=== PATIENT | female | born 1995 | race Caucasian/White ===

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

== ENCOUNTER 2018-04-04 23:36 | Emergency (ER) | payer BC ==
[2018-04-04] MEDS ORDERED: Ondansetron 4 MG/2 ML SDV IV ONE (23:39)
[2018-04-05 00:20] VITALS: BP 136/82
[2018-04-05 00:22] LABS: ANION GAP 21.5; CHLORIDE,CL 98 mmol/L (101-111); SODIUM,NA 135 mmol/L (135-145)
[2018-04-05] MEDS ORDERED: Sodium Chloride 0.9% 1,000 ML IV ONE (00:47)
--- NOTE | 2018-04-05 00:56 | EDM.PDOC ---
ED HPI GENERAL MEDICAL PROBLEM - General Chief Complaint: Behavioral/Psych Stated Complaint: IN BY AMBULANCE Time Seen by Provider: 04/05/18 00:40 Source of Information: Reports: Patient History Limitations: Reports: Intoxication - History of Present Illness INITIAL COMMENTS - FREE TEXT/NARRATIVE: This 22 yo female patient was brought to the ED by [facility] due to drinking alcohol and vomiting. The patient had drank 750 ml of Tequila this evening on a dare. The patient reports that her insulin pump "" and she does not have her sensor on at this time. The patient reports that she did not stop her medications or insulin pump with an intention to harm herself. Onset: Today Duration: Constant Location: Reports: Other Quality: Reports: Other Severity: Moderate Improves with: Reports: None Worsens with: Reports: None Associated Symptoms: Reports: No Other Symptoms - Related Data Allergies Allergy/AdvReac Type Severity Reaction Status Date / Time levofloxacin [From Levaquin] Allergy Swollen Verified 04/05/18 00:17 Tongue Home Meds: Home Meds Amylase/Lipase/Protease [Creon DR 24,000 Unit] 150 mg PO DAILY 07/23/15 [History ] Dornase Michael [Pulmozyme] 2.5 mg NEB DAILY 07/23/15 [History] Ergocalciferol (Vitamin D2) [Vitamin D2] 50,000 units PO Q7D 07/23/15 [History] Ivacaftor [Kalydeco] 150 mg PO DAILY 07/23/15 [History] Lansoprazole [Prevacid] 15 mg PO DAILY 07/23/15 [History] Past Medical History Respiratory History: Reports: Cystic Fibrosis Endocrine/Metabolic History: Reports: Diabetes, Type I - Past Surgical History GI Surgical History: Reports: Other (See Below) Social & Family History - Tobacco Use Smoking Status *Q: Never Smoker Second Hand Smoke Exposure: No - Caffeine Use Caffeine Use: Reports: Coffee - Alcohol Use Date of Last Drink: 04/04/18 - Recreational Drug Use Recreational Drug Use: No ED ROS GENERAL - Review of Systems Review Of Systems: ROS reveals no pertinent complaints other than HPI. - Physical Exam Exam: See Below Exam Limited By: Intoxication General Appearance: Alert, WD/WN, Moderate Distress Eye Exam: Bilateral Eye: EOMI, Normal Inspection, PERRL Ears: Normal External Exam, Normal Canal, Hearing Grossly Normal, Normal TMs Nose: Normal Inspection, Normal Mucosa, No Blood Throat/Mouth: Normal Inspection, Normal Lips, Normal Teeth, Normal Gums, Normal Oropharynx, Normal Voice, No Airway Compromise Head Exam: Atraumatic, Normocephalic Neck: Normal Inspection, Supple, Non-Tender, Full Range of Motion Respiratory/Chest: No Respiratory Distress, Lungs Clear, Normal Breath Sounds, No Accessory Muscle Use, Chest Non-Tender Cardiovascular: Normal Peripheral Pulses, Regular Rate, Rhythm, No Edema, No Gallop, No JVD, No Murmur, No Rub GI/Abdominal: Normal Bowel Sounds, Soft, Non-Tender, No Organomegaly, No Distention, No Abnormal Bruit, No Mass (Female) Exam: Deferred Rectal (Female) Exam: Deferred Neuro Exam (Abbreviated): Alert, Oriented, CN II-XII Intact Back Exam: Normal Inspection, Full Range of Motion, NT Extremities: Normal Inspection, Normal Range of Motion, Non-Tender, No Pedal Edema, Normal Capillary Refill Psychiatric: Normal Affect, Normal Mood Skin Exam: Warm, Dry, Intact, Normal Color, No Rash Course - Vital Signs Last Recorded V/S: Last Vital Signs Temp 36.4 C 04/04/18 23:53 Pulse 111 H 04/05/18 00:19 Resp 20 04/05/18 00:19 BP 136/82 04/05/18 00:19 Pulse Ox 100 04/05/18 00:19 - Orders/Labs/Meds Orders: Active Orders 24 hr Category Date Time Status Glucose [Blood Glucose Check, Bedside] [RC] ONETIME Care 04/05/18 01:54 Ordered Ankle Min 3V Lt [CR] Urgent Exams 04/05/18 00:59 Taken DRUG SCREEN URINE BIORAD [URCHEM] Stat Lab 04/04/18 23:37 Ordered HCG QUALITATIVE,URINE [URCHEM] Stat Lab 04/04/18 23:37 Ordered UA W/MICROSCOPIC [URIN] Stat Lab 04/04/18 23:37 Ordered DME for Discharge [COMM] Urgent Oth 04/05/18 01:47 Ordered Labs: Laboratory Tests 04/04/18 04/04/18 04/04/18 Range/Units 23:53 23:53 23:53 WBC 14.0 H (5.0-10.0) 10^3/uL RBC 4.79 (4.2-5.4) 10^6/uL Hgb 13.0 D (12.0-16.0) g/dL Hct 38.4 (37.0-47.0) % MCV 80.2 D (80-100) fL MCH 27.1 (27.0-34.0) pg MCHC 33.9 (33.0-35.0) g/dL Plt Count 564 H D (150-450) 10^3/uL Neut % (Auto) 70.4 (42.2-75.2) % Lymph % (Auto) 23.1 (20.5-50.1) % [place] % (Auto) 5.7 (2-8) % Eos % (Auto) 0.5 L (1.0-3.0) % Baso % (Auto) 0.3 (0.0-1.0) % Sodium 135 D (135-145) mmol/L Potassium 3.5 L (3.6-5.0) mmol/L Chloride 98 L (101-111) mmol/L Carbon Dioxide 19.0 L (21.0-31.0) mmol/L Anion Gap 21.5 BUN 13 (7-18) mg/dL Creatinine 0.8 (0.6-1.3) mg/dL Est Cr Clr Drug Dosing 100.94 mL/min Estimated GFR (MDRD) > 60 BUN/Creatinine Ratio 16.25 Glucose 442 H* (74-105) mg/dL POC Glucose (70-105) mg/dl Calcium 8.3 L (8.4-10.2) mg/dl Total Bilirubin 0.2 (0.2-1.0) mg/dL AST 25 (10-42) IU/L ALT 32 (10-60) IU/L Alkaline Phosphatase 121 (42-121) IU/L Total Protein 8.1 (6.7-8.2) g/dl Albumin 3.6 (3.2-5.5) g/dl Globulin 4.5 Albumin/Globulin Ratio 0.80 Ethyl Alcohol 292 mg/dL Ketones 04/04/18 04/05/18 Range/Units 23:53 02:03 WBC (5.0-10.0) 10^3/uL RBC (4.2-5.4) 10^6/uL Hgb (12.0-16.0) g/dL Hct (37.0-47.0) % MCV (80-100) fL MCH (27.0-34.0) pg MCHC (33.0-35.0) g/dL Plt Count (150-450) 10^3/uL Neut % (Auto) (42.2-75.2) % Lymph % (Auto) (20.5-50.1) % [place] % (Auto) (2-8) % Eos % (Auto) (1.0-3.0) % Baso % (Auto) (0.0-1.0) % Sodium (135-145) mmol/L Potassium (3.6-5.0) mmol/L Chloride (101-111) mmol/L Carbon Dioxide (21.0-31.0) mmol/L Anion Gap BUN (7-18) mg/dL Creatinine (0.6-1.3) mg/dL Est Cr Clr Drug Dosing mL/min Estimated GFR (MDRD) BUN/Creatinine Ratio Glucose (74-105) mg/dL POC Glucose 291 H (70-105) mg/dl Calcium (8.4-10.2) mg/dl Total Bilirubin (0.2-1.0) mg/dL AST (10-42) IU/L ALT (10-60) IU/L Alkaline Phosphatase (42-121) IU/L Total Protein (6.7-8.2) g/dl Albumin (3.2-5.5) g/dl Globulin Albumin/Globulin Ratio Ethyl Alcohol mg/dL Ketones Negative Meds: Medications Discontinued Medications Generic Name Dose Route Start Last Admin Trade Name Freq PRN Reason Stop Dose Admin Sodium Chloride 1,000 mls @ 999 mls/hr 04/05/18 00:47 04/05/18 00:54 Normal Saline IV 04/05/18 01:47 999 mls/hr .BOLUS ONE Administration Ondansetron HCl 4 mg 04/04/18 23:39 04/04/18 23:50 Zofran IV 04/04/18 23:40 4 mg ONETIME ONE Administration Departure - Departure Time of Disposition: :08 Disposition: Home, Self-Care 01 Condition: Fair Clinical Impression: ETOH abuse Closed left fibular fracture Qualifiers: Encounter type: initial encounter Fibula location: lateral malleolus Fracture alignment: nondisplaced Qualified Code(s): S82.65XA - Nondisplaced fracture of lateral malleolus of left fibula, initial encounter for closed fracture - Discharge Information *PRESCRIPTION DRUG MONITORING PROGRAM REVIEWED*: Not Applicable *COPY OF PRESCRIPTION DRUG MONITORING REPORT IN PATIENT KAMILAH: Not Applicable Instructions: Fibular Ankle Fracture Treated With or Without Immobilization, Adult Forms: ED Department Discharge Care Plan Goals: The patient was advised of the examination, lab and x-ray results during the visit. The patient's left ankle was placed in a walking boot and given a set of crutches during the visit. The patient was encouraged to remain non weight bearing over the next week. The patient should have a follow-up with her primary care provider for continued evaluation and management. If the patient has any additional symptoms or concerns, the patient should follow-up with her primary care facility or return to the emergency department. - My Orders Last 24 Hours: My Active Orders 04/04/18 23:37 DRUG SCREEN URINE BIORAD [URCHEM] Stat HCG QUALITATIVE,URINE [URCHEM] Stat UA W/MICROSCOPIC [URIN] Stat 04/05/18 00:59 Ankle Min 3V Lt [CR] Urgent 04/05/18 01:47 DME for Discharge [COMM] Urgent 04/05/18 01:54 Glucose [Blood Glucose Check, Bedside] [RC] ONETIME - Assessment/Plan Last 24 Hours: My Active Orders 04/04/18 23:37 DRUG SCREEN URINE BIORAD [URCHEM] Stat HCG QUALITATIVE,URINE [URCHEM] Stat UA W/MICROSCOPIC [URIN] Stat 04/05/18 00:59 Ankle Min 3V Lt [CR] Urgent 04/05/18 01:47 DME for Discharge [COMM] Urgent 04/05/18 01:54 Glucose [Blood Glucose Check, Bedside] [RC] ONETIME
== END 2018-04-05 02:21 | disposition home or self-care (01) ==
LOC: DL.ED 23:36
DX: S82.65XA Nondisplaced fracture of lateral malleolus of left fibula, initial encounter for closed fracture (principal); F10.10 Alcohol abuse, uncomplicated; E10.9 Type 1 diabetes mellitus without complications; Z79.899 Other long term (current) drug therapy; Z88.1 Allergy status to other antibiotic agents; Y90.8 Blood alcohol level of 240 mg/100 ml or more; X58.XXXA Exposure to other specified factors, initial encounter
CPT/HCPCS: 36415; 73610; 80053; 82009; 82962; 85025; 96361; 96374; 99285; G0480; J2405; J7030

== ENCOUNTER 2018-05-04 03:22 | Emergency (ER) | payer BC ==
[2018-05-04 03:33] VITALS: BP 141/98
--- NOTE | 2018-05-04 03:43 | EDM.PDOC ---
ED HPI GENERAL MEDICAL PROBLEM - General Chief Complaint: Respiratory Problem Stated Complaint: DIFFICULTY BREATHING [id number] Time Seen by Provider: 05/04/18 03:38 Source of Information: Reports: Patient, Family History Limitations: Reports: No Limitations - History of Present Illness INITIAL COMMENTS - FREE TEXT/NARRATIVE: family states pt has CF and being Tx in [place] has appt with them this am been having a cold few weeks is taking z-iraida but tonight SOB worsen with SOB/CP. does nebs at home had one [employer] but not working well. family states pt has h/o anxiety Mid-Sternal Pain Score (Numeric/FACES): 8 - Related Data Allergies Allergy/AdvReac Type Severity Reaction Status Date / Time levofloxacin [From Levaquin] Allergy Swollen Verified 05/04/18 03:33 Tongue Home Meds: Home Meds Amylase/Lipase/Protease [Creon DR 24,000 Unit] 150 mg PO DAILY 07/23/15 [History ] Dornase Michael [Pulmozyme] 2.5 mg NEB DAILY 07/23/15 [History] Ergocalciferol (Vitamin D2) [Vitamin D2] 50,000 units PO Q7D 07/23/15 [History] Ivacaftor [Kalydeco] 150 mg PO DAILY 07/23/15 [History] Lansoprazole [Prevacid] 15 mg PO DAILY 07/23/15 [History] Past Medical History Respiratory History: Reports: Cystic Fibrosis Endocrine/Metabolic History: Reports: Diabetes, Type I - Past Surgical History GI Surgical History: Reports: Other (See Below) Social & Family History - Caffeine Use Caffeine Use: Reports: Coffee ED ROS GENERAL - Review of Systems Review Of Systems: ROS reveals no pertinent complaints other than HPI. ED EXAM, GENERAL - Physical Exam Exam: See Below Exam Limited By: No Limitations General Appearance: Alert, WD/WN, Anxious, Mild Distress, Moderate Distress, Other (tachypnoic, diaphoretic) Ears: Hearing Grossly Normal Throat/Mouth: Normal Voice, No Airway Compromise Head: Atraumatic Neck: Non-Tender, Full Range of Motion Respiratory/Chest: Decreased Breath Sounds, Crackles, Rales, Rhonchi, Accessory Muscle Use, Other (tachypneic) Cardiovascular: Tachycardia GI/Abdominal: Soft, Non-Tender Neurological: Alert, Oriented, Normal Cognition, Normal Gait, No Motor/Sensory Deficits Psychiatric: Anxious Skin Exam: Diaphoretic, Pallor Lymphatic: No Adenopathy Course - Vital Signs Last Recorded V/S: Last Vital Signs Temp 36.6 C 05/04/18 03:25 Pulse 151 H 05/04/18 03:25 Resp 38 H 05/04/18 03:25 BP 141/98 H 05/04/18 03:25 Pulse Ox 97 05/04/18 03:33 - Orders/Labs/Meds Orders: Active Orders 24 hr Category Date Time Status EKG 12 Lead [EKG Documentation Completion] [RC] STAT Care 05/04/18 03:34 Active RT Aerosol Therapy [RC] ASDIRECTED Care 05/04/18 03:44 Active Chest 1V Frontal [CR] Urgent Exams 05/04/18 04:00 Taken CULTURE BLOOD [BC] Stat Lab 05/04/18 04:44 Ordered DRUG SCREEN URINE BIORAD [URCHEM] Stat Lab 05/04/18 03:24 Ordered HCG QUALITATIVE,URINE [URCHEM] Stat Lab 05/04/18 03:24 Ordered UA W/O MICROSCOPIC [URIN] Stat Lab 05/04/18 03:24 Ordered Azithromycin [Zithromax] 500 mg Med 05/04/18 05:20 Ordered Sodium Chloride 0.9% [Normal Saline] 250 ml IV ONETIME Piperacillin/Tazobactam [Zosyn] 3.375 gm Med 05/04/18 05:20 Ordered Sodium Chloride 0.9% [Normal Saline] 100 ml IV ONETIME Sodium Chloride 0.9% [Normal Saline] 1,000 ml Med 05/04/18 05:30 Ordered IV ASDIRECTED Medication Orders Azithromycin 500 mg/ Sodium (Chloride) 250 mls @ 250 mls/hr IV ONETIME ONE Stop: 05/04/18 06:19 Piperacillin Sod/Tazobactam (Sod 3.375 gm/ Sodium Chloride) 100 mls @ 200 mls/ hr IV ONETIME ONE Stop: 05/04/18 05:49 Sodium Chloride (Normal Saline) 1,000 mls @ 200 mls/hr IV ASDIRECTED [facility] Labs: Laboratory Tests 05/04/18 05/04/18 05/04/18 Range/Units 03:30 03:30 03:30 WBC 13.1 H (5.0-10.0) 10^3/uL RBC 4.65 (4.2-5.4) 10^6/uL Hgb 12.3 (12.0-16.0) g/dL Hct 36.5 L (37.0-47.0) % MCV 78.5 L (80-100) fL MCH 26.5 L (27.0-34.0) pg MCHC 33.7 (33.0-35.0) g/dL Plt Count 655 H D (150-450) 10^3/uL Neut % (Auto) 68.2 (42.2-75.2) % Lymph % (Auto) 21.9 (20.5-50.1) % [place] % (Auto) 8.9 H (2-8) % Eos % (Auto) 0.8 L (1.0-3.0) % Baso % (Auto) 0.2 (0.0-1.0) % Add Manual Diff Yes Neutrophils % (Manual) 63 (42-75) % Lymphocytes % (Manual) 31 (20-50) % Monocytes % (Manual) 4 (2-8) % Eosinophils % (Manual) 2 (1-3) % ABG pH (7.35-7.45) ABG pCO2 (35-45) mmHg ABG pO2 (70-100) mmHg ABG HCO3 (22-26) mmol/L ABG O2 Saturation (95-100) % ABG Base Excess ((-2)-(+3)) mmol/L Justo Test O2 Delivery Device Oxygen Flow Rate Sodium 128 L (135-145) mmol/L Potassium 3.7 (3.6-5.0) mmol/L Chloride 92 L (101-111) mmol/L Carbon Dioxide 26.0 (21.0-31.0) mmol/L Anion Gap 13.7 BUN 12 (7-18) mg/dL Creatinine 0.7 (0.6-1.3) mg/dL Est Cr Clr Drug Dosing 110.70 mL/min Estimated GFR (MDRD) > 60 BUN/Creatinine Ratio 17.14 Glucose 374 H (74-105) mg/dL Lactic Acid 1.2 (0.5-2.2) mmol/L Calcium 8.5 (8.4-10.2) mg/dl Total Bilirubin 0.2 (0.2-1.0) mg/dL AST 15 (10-42) IU/L ALT 14 (10-60) IU/L Alkaline Phosphatase 126 H (42-121) IU/L Troponin I (0.00-0.02) ng/ml B-Natriuretic Peptide (0-100) pg/ml Total Protein 8.1 (6.7-8.2) g/dl Albumin 3.0 L (3.2-5.5) g/dl Globulin 5.1 Albumin/Globulin Ratio 0.59 Ethyl Alcohol < 5 mg/dL 05/04/18 05/04/18 05/04/18 Range/Units 03:30 03:30 03:53 WBC (5.0-10.0) 10^3/uL RBC (4.2-5.4) 10^6/uL Hgb (12.0-16.0) g/dL Hct (37.0-47.0) % MCV (80-100) fL MCH (27.0-34.0) pg MCHC (33.0-35.0) g/dL Plt Count (150-450) 10^3/uL Neut % (Auto) (42.2-75.2) % Lymph % (Auto) (20.5-50.1) % [place] % (Auto) (2-8) % Eos % (Auto) (1.0-3.0) % Baso % (Auto) (0.0-1.0) % Add Manual Diff Neutrophils % (Manual) (42-75) % Lymphocytes % (Manual) (20-50) % Monocytes % (Manual) (2-8) % Eosinophils % (Manual) (1-3) % ABG pH 7.46 H (7.35-7.45) ABG pCO2 37 (35-45) mmHg ABG pO2 81 (70-100) mmHg ABG HCO3 25.5 (22-26) mmol/L ABG O2 Saturation 96 (95-100) % ABG Base Excess 2 ((-2)-(+3)) mmol/L Justo Test Positive O2 Delivery Device Nasal cannula Oxygen Flow Rate 3 Sodium (135-145) mmol/L Potassium (3.6-5.0) mmol/L Chloride (101-111) mmol/L Carbon Dioxide (21.0-31.0) mmol/L Anion Gap BUN (7-18) mg/dL Creatinine (0.6-1.3) mg/dL Est Cr Clr Drug Dosing mL/min Estimated GFR (MDRD) BUN/Creatinine Ratio Glucose (74-105) mg/dL Lactic Acid (0.5-2.2) mmol/L Calcium (8.4-10.2) mg/dl Total Bilirubin (0.2-1.0) mg/dL AST (10-42) IU/L ALT (10-60) IU/L Alkaline Phosphatase (42-121) IU/L Troponin I < 0.02 (0.00-0.02) ng/ml B-Natriuretic Peptide 13 (0-100) pg/ml Total Protein (6.7-8.2) g/dl Albumin (3.2-5.5) g/dl Globulin Albumin/Globulin Ratio Ethyl Alcohol mg/dL Meds: Medications Generic Name Dose Route Start Last Admin Trade Name Freq PRN Reason Stop Dose Admin Azithromycin 500 mg/ Sodium 250 mls @ 250 mls/hr 05/04/18 05:20 Chloride IV 05/04/18 06:19 ONETIME ONE Piperacillin Sod/Tazobactam 100 mls @ 200 mls/hr 05/04/18 05:20 Sod 3.375 gm/ Sodium Chloride IV 05/04/18 05:49 ONETIME ONE Sodium Chloride 1,000 mls @ 200 mls/hr 05/04/18 05:30 Normal Saline IV ASDIRECTED CARLOS Discontinued Medications Generic Name Dose Route Start Last Admin Trade Name Freq PRN Reason Stop Dose Admin Albuterol/Ipratropium 3 ml 05/04/18 03:44 05/04/18 03:52 Duoneb 3.0-0.5 Mg/3 Ml NEB 05/04/18 03:45 3 ml ONETIME ONE Administration Lorazepam 1 mg 05/04/18 03:44 05/04/18 03:52 Ativan IVPUSH 05/04/18 03:45 1 mg ONETIME ONE Administration Methylprednisolone Sodium Succinate 125 mg 05/04/18 03:44 05/04/18 03:52 Solu-Medrol IVPUSH 05/04/18 03:45 125 mg ONETIME ONE Administration - Re-Assessments/Exams Free Text/Narrative Re-Assessment/Exam: 05/04/18 05:[address] Ennis church supervisor @ [facility] who kindly acepted pt. Departure - Departure Time of Disposition: 05:24 Disposition: DC/Tfer to [facility] 02 Condition: Fair Clinical Impression: Pulmonary cystic fibrosis, Hypoxemia, Hyponatremia Pneumonia Qualifiers: Pneumonia type: due to unspecified organism Laterality: bilateral Lung location : lower lobe of lung Qualified Code(s): J18.1 - Lobar pneumonia, unspecified organism - Discharge Information Forms: Interfacility Transfer EMTALA - My Orders Last 24 Hours: My Active Orders 05/04/18 03:24 DRUG SCREEN URINE BIORAD [URCHEM] Stat HCG QUALITATIVE,URINE [URCHEM] Stat UA W/O MICROSCOPIC [URIN] Stat 05/04/18 03:34 EKG 12 Lead [EKG Documentation Completion] [RC] STAT 05/04/18 03:44 RT Aerosol Therapy [RC] ASDIRECTED 05/04/18 04:00 Chest 1V Frontal [CR] Urgent 05/04/18 04:44 CULTURE BLOOD [BC] Stat 05/04/18 05:20 Azithromycin [Zithromax] 500 mg Sodium Chloride 0.9% [Normal Saline] 250 ml IV ONETIME Piperacillin/Tazobactam [Zosyn] 3.375 gm Sodium Chloride 0.9% [Normal Saline] 100 ml IV ONETIME 05/04/18 05:30 Sodium Chloride 0.9% [Normal Saline] 1,000 ml IV ASDIRECTED - Assessment/Plan Last 24 Hours: My Active Orders 05/04/18 03:24 DRUG SCREEN URINE BIORAD [URCHEM] Stat HCG QUALITATIVE,URINE [URCHEM] Stat UA W/O MICROSCOPIC [URIN] Stat 05/04/18 03:34 EKG 12 Lead [EKG Documentation Completion] [RC] STAT 05/04/18 03:44 RT Aerosol Therapy [RC] ASDIRECTED 05/04/18 04:00 Chest 1V Frontal [CR] Urgent 05/04/18 04:44 CULTURE BLOOD [BC] Stat 05/04/18 05:20 Azithromycin [Zithromax] 500 mg Sodium Chloride 0.9% [Normal Saline] 250 ml IV ONETIME Piperacillin/Tazobactam [Zosyn] 3.375 gm Sodium Chloride 0.9% [Normal Saline] 100 ml IV ONETIME 05/04/18 05:30 Sodium Chloride 0.9% [Normal Saline] 1,000 ml IV ASDIRECTED
[2018-05-04] MEDS ORDERED: LORazepam 2 MG/ML Syringe IVPUSH ONE (03:44)
[2018-05-04] MEDS ORDERED: Albuterol/Ipratropium 3.0-0.5 MG/3 ML Neb Soln NEB ONE (03:44)
[2018-05-04] MEDS ORDERED: methylPREDNISolone Sodium Succinate 125 MG/2 ML SDV IVPUSH ONE (03:44)
[2018-05-04 03:57] LABS: ANION GAP 13.7; CHLORIDE,CL 92 mmol/L (101-111); SODIUM,NA 128 mmol/L (135-145)
[2018-05-04 04:25] LABS: BASE EXCESS ARTERIAL 2 mmol/L ((-2)-(+3)); BICARBONATE,ARTERIAL 25.5 mmol/L (22-26); O2 DELIVERY DEVICE NASAL CANNULA; O2 SATURATION ARTERIAL 96 % (95-100); PCO2 ARTERIAL 37 mmHg (35-45); PO2 ARTERIAL 81 mmHg (70-100)
[2018-05-04 04:26] LABS: ALLEN TEST POSITIVE
[2018-05-04 04:27] LABS: O2 FLOW RATE 3
[2018-05-04] MEDS ORDERED: Azithromycin 500 MG in Sodium Chloride 0.9% 250 ML IV ONE (05:20)
[2018-05-04] MEDS ORDERED: Piperacillin/Tazobactam 3.375 GM in Sodium Chloride 0.9% 100 ML IV ONE (05:20)
[2018-05-04] MEDS ORDERED: Sodium Chloride 0.9% 1,000 ML IV SCH (05:30)
== END 2018-05-04 06:40 ==
LOC: DL.ED 03:22
DX: J18.9 Pneumonia, unspecified organism (principal); J84.10 Pulmonary fibrosis, unspecified; E87.1 Hypo-osmolality and hyponatremia; R09.02 Hypoxemia; E10.9 Type 1 diabetes mellitus without complications; Z79.899 Other long term (current) drug therapy; Z88.1 Allergy status to other antibiotic agents
CPT/HCPCS: 36415; 36600; 71045; 80053; 82803; 83605; 83880; 84484; 85025; 87040; 93005; 94640; 96365; 96367; 96375; 99285; G0480; J0456; J2060; J2543; J2930; J7050; J7620-GY

== ENCOUNTER 2018-11-04 22:19 | Emergency (ER) | payer BC ==
[2018-11-04] MEDS ORDERED: Acetaminophen/HYDROcodone 325-10 MG Tab PO ONE (22:20)
[2018-11-04 22:36] VITALS: BP 137/93
[2018-11-04] MEDS ORDERED: cefTRIAXone 1 GM, Lidocaine 1% 2.1 ML IM ONE ×2 (23:35)
[2018-11-04] MEDS ORDERED: Acetaminophen/HYDROcodone 325-10 MG Tab ONE (23:43)
--- NOTE | 2018-11-04 23:46 | EDM.PDOC ---
ED HPI GENERAL MEDICAL PROBLEM - General Chief Complaint: ENT Problem Stated Complaint: PAIN IN LEFT EAR- EAR INFECTION Time Seen by Provider: 11/04/18 23:00 Source of Information: Reports: Patient, Family History Limitations: Reports: No Limitations - History of Present Illness INITIAL COMMENTS - FREE TEXT/NARRATIVE: c/o pain left ear, worse tonight, unrelieved with tylenol and ibuprofen. Has been seen in clinic yesterday, prescribed cipro drops, for infection. Has been on augmenting for one week for sinus infection. Sinus sx improved. Pain left ear sharp radiating. No fever. Hx of cystic fibrosis. Treatments MANAGER OF INTERNAL AUDIT: Reports: NSAIDS Left Ear Pain Score (Numeric/FACES): 9 - Related Data Allergies Allergy/AdvReac Type Severity Reaction Status Date / Time levofloxacin [From Levaquin] Allergy Swollen Verified 11/04/18 22:39 Tongue Home Meds: Home Meds Amylase/Lipase/Protease [Creon DR 24,000 Unit] 150 mg PO DAILY 07/23/15 [History ] Dornase Michael [Pulmozyme] 2.5 mg NEB DAILY 07/23/15 [History] Ergocalciferol (Vitamin D2) [Vitamin D2] 50,000 units PO Q7D 07/23/15 [History] Ivacaftor [Kalydeco] 150 mg PO DAILY 07/23/15 [History] Lansoprazole [Prevacid] 15 mg PO DAILY 07/23/15 [History] Insulin Aspart [NovoLOG] 1.4 units SQ ASDIRECTED 11/04/18 [History] Past Medical History Respiratory History: Reports: Cystic Fibrosis Endocrine/Metabolic History: Reports: Diabetes, Type I - Past Surgical History GI Surgical History: Reports: Other (See Below) Other GI Surgeries/Procedures: Feediang tube and removal Social & Family History - Family History Family Medical History: Noncontributory - Tobacco Use Smoking Status *Q: Never Smoker Second Hand Smoke Exposure: No - Caffeine Use Caffeine Use: Reports: Coffee, Soda - Recreational Drug Use Recreational Drug Use: No ED ROS ENT - Review of Systems Review Of Systems: ROS reveals no pertinent complaints other than HPI. ED EXAM, ENT - Physical Exam Exam: See Below Exam Limited By: No Limitations General Appearance: Alert, Mild Distress Eye Exam: Bilateral Eye: EOMI Ears: Normal External Exam, Mastoid Tenderness (mild), TM Fluid (cloudy ) Nose: Normal Inspection, Normal Mucousa Mouth/Throat: Normal Inspection Head: Atraumatic, Normocephalic Neck: Normal Inspection Respiratory/Chest: No Respiratory Distress, Lungs Clear GI/Abdominal: Normal Bowel Sounds Extremities: Normal Inspection Neurological: Alert, Oriented Skin: Warm, Dry, Pallor Course - Vital Signs Last Recorded V/S: Last Vital Signs Temp 96.8 F 11/04/18 22:20 Pulse 107 H 11/04/18 22:20 Resp 14 11/04/18 22:20 BP 137/93 H 11/04/18 22:20 Pulse Ox 95 11/04/18 22:20 Departure - Departure Time of Disposition: 23:36 Disposition: Home, Self-Care 01 Condition: Good Clinical Impression: Otitis media Qualifiers: Otitis media type: suppurative Chronicity: acute Laterality: left Recurrence: non-recurrent Spontaneous tympanic membrane rupture: without spontaneous rupture Qualified Code(s): H66.002 - Acute suppurative otitis media without spontaneous rupture of ear drum, left ear - Discharge Information *PRESCRIPTION DRUG MONITORING PROGRAM REVIEWED*: Not Applicable *COPY OF PRESCRIPTION DRUG MONITORING REPORT IN PATIENT KAMILAH: Not Applicable Instructions: Mastoiditis, Pediatric Additional Instructions: continue with cipro ear drops omnicef 300mg one twice daily x 10 days alternate tylenol and ibuprofen every 4 hours as needed hydrocodone 10/325 one every 6 hours as needed #2 clinic follow up Friday sooner if symptoms or pain worsening
== END 2018-11-04 23:57 | disposition home or self-care (01) ==
LOC: DL.ED 22:19
DX: H66.002 Acute suppurative otitis media without spontaneous rupture of ear drum, left ear (principal); E10.9 Type 1 diabetes mellitus without complications; Z79.899 Other long term (current) drug therapy; Z88.1 Allergy status to other antibiotic agents
CPT/HCPCS: 96372; 99282; A9270; J0696; J2001

== ENCOUNTER 2019-03-29 20:32 | Emergency (ER) | payer BC ==
[2019-03-29 20:38] VITALS: BP 149/99
--- NOTE | 2019-03-29 22:10 | EDM.PDOC ---
ED HPI GENERAL MEDICAL PROBLEM - General Chief Complaint: Lower Extremity Injury/Pain Stated Complaint: POSSIBLE BROKEN FOOT Time Seen by Provider: 03/29/19 20:35 Source of Information: Reports: Patient History Limitations: Reports: No Limitations - History of Present Illness INITIAL COMMENTS - FREE TEXT/NARRATIVE: C/o bruising and pain to left ankle. Fell walking off curb on Friday. Prior left ankle fracture one year ago. Ambulatory with walking boot. Admits ETOH Friday shima. Tried clinic today unable to get in. Treatments OB TECH: Reports: NSAIDS Left Foot Pain Score (Numeric/FACES): 3 - Related Data Allergies Allergy/AdvReac Type Severity Reaction Status Date / Time levofloxacin [From Levaquin] Allergy Swollen Verified 03/29/19 20:43 Tongue Home Meds: Home Meds Amylase/Lipase/Protease [Aretha MOTTA 24,000 Unit] 6 cap PO TIDMEALS 07/23/15 [ History] Ivacaftor [Kalydeco] 150 mg PO DAILY 07/23/15 [History] Lansoprazole [Prevacid] 15 mg PO BID 07/23/15 [History] Insulin Aspart [NovoLOG] 10 units SQ ASDIRECTED 11/04/18 [History] Azithromycin 500 mg PO ASDIRECTED 02/01/19 [History] Aztreonam Lysine [Cayston] 75 mg NEB TID 02/01/19 [History] Cholecalciferol (Vitamin D3) [Vitamin D3] 50,000 units PO DAILY 02/01/19 [ History] Norethindrone AC-Eth Estradiol [Norethind-Eth Estrad 1-0.02 mg] 1 each PO DAILY 02/01/19 [History] Spironolactone [Aldactone] 100 mg PO DAILY 02/01/19 [History] Tobramycin In 0.225% NaCl [Tobramycin 300 mg/5 ml Ampule] 5 ml NEB BID 02/01/19 [History] Venlafaxine HCl [Venlafaxine HCl ER] 75 mg PO DAILY 02/01/19 [History] Venlafaxine HCl [Venlafaxine HCl ER] 150 mg PO DAILY 02/01/19 [History] Acetylcysteine [Mucomyst 10%] 4 ml NEB TID 03/29/19 [History] Albuterol Sulfate [Proair Hfa] 2 puff INH Q4H PRN 03/29/19 [History] Amylase/Lipase/Protease [Creon DR 24,000 Unit] 3 cap PO WITHSNACKS 03/29/19 [ History] Budesonide [Rhinocort Allergy] 8.43 ml NS BID PRN 03/29/19 [History] Cholecalciferol (Vitamin D3) [Vitamin D3] 8,000 unit PO DAILY 03/29/19 [History] Dornase Michael [Pulmozyme] 2.5 mg NEB BID 03/29/19 [History] Ergocalciferol (Vitamin D2) [Vitamin D2] 50,000 units PO DAILY 03/29/19 [History ] Insulin Aspart [NovoLOG] 1.4 units SQ ASDIRECTED 03/29/19 [History] Insulin Glargine,Hum.Rec.Anlog [Lantus Solostar] 35 unit SQ DAILY 03/29/19 [ History] Lactobacillus Rhamnosus GG [Culturelle] 1 cap PO BID 03/29/19 [History] Levalbuterol HCl [Xopenex] 1 ampule NEB Q8H 03/29/19 [History] Multivitamins [Tab-A-Cassandra] 2 each PO DAILY 03/29/19 [History] Polyethylene Glycol 3350 [MiraLAX] 17 gm PO DAILY PRN 03/29/19 [History] Sodium Chloride 7% [HyperSal 7%] 4 ml NEB BID 03/29/19 [History] Tedizolid Phosphate [Sivextro] 200 mg PO DAILY 03/29/19 [History] Past Medical History Respiratory History: Reports: Cystic Fibrosis Endocrine/Metabolic History: Reports: Diabetes, Type I - Past Surgical History GI Surgical History: Reports: Other (See Below) Other GI Surgeries/Procedures: Feeding tube and removal Social & Family History - Family History Family Medical History: Noncontributory - Tobacco Use Smoking Status *Q: Never Smoker - Caffeine Use Caffeine Use: Reports: Coffee, Soda - Recreational Drug Use Recreational Drug Use: No - Living Situation & Occupation Living situation: Reports: with Family Occupation: Employed Review of Systems - Review of Systems Review Of Systems: ROS reveals no pertinent complaints other than HPI. ED EXAM, GENERAL - Physical Exam Exam: See Below Exam Limited By: No Limitations General Appearance: Alert, No Apparent Distress Eye Exam: Bilateral Eye: EOMI Ears: Normal External Exam Nose: Normal Inspection Throat/Mouth: Normal Inspection, Normal Voice Head: Atraumatic, Normocephalic Neck: Normal Inspection Respiratory/Chest: No Respiratory Distress Cardiovascular: Normal Peripheral Pulses Back Exam: Full Range of Motion Extremities: Joint Swelling (left lateral ankle, mild fore foot) Neurological: Alert, Oriented, Normal Cognition Psychiatric: Normal Affect Skin Exam: Warm, Dry, Ecchymosis (proximal toes, lateral nkle and lateral edge fore foot) Course - Vital Signs Last Recorded V/S: Last Vital Signs Temp 98.1 F 03/29/19 20:37 Pulse 120 H 03/29/19 20:37 Resp 20 03/29/19 20:37 BP 149/99 H 03/29/19 20:37 Pulse Ox 96 03/29/19 20:37 - Radiology Interpretation Free Text/Narrative:: [facility] Final Radiology Report Call: [phone] assistance Online chat: [email or web address] Name: APRIL GLASS Age: 23Years F Date: 03/29/2019 SSN: -- : 1995 Study: XR FOOT COMPLETE MIN 3 VIEWS LEFT Requesting Physician: AYDEN LOPEZ Images: 3 Addl Studies: Provided Clinical History: Contrast: Contrast Medium: Contrast Amount: Contrast Method: Page 1 of 2 EXAM: XR Left Foot Complete EXAM DATE/TIME: 03/29/2019 8:48 PM CLINICAL HISTORY: 23 years old, female; Pain; Foot; Left; Patient HX: Fell off curb 03-26-19, HX of fracture (ankle) TECHNIQUE: Imaging protocol: XR Left foot. Views: 3 or more views. COMPARISON: CR Ankle Min 3V Lt 03/29/2019 8:43 PM FINDINGS: There is normal osseous alignment. There are no acute foot fractures. Nondisplaced fracture of lateral malleolus. No callus formation is seen along the metatarsals or elsewhere in the foot. No osteosclerotic abnormalities. No lytic areas of osseous destruction. There are no soft tissue calcifications or radio-opaque foreign bodies. No periarticular osteophyte formation or erosions. IMPRESSION: 1. No acute foot injury. 2. Acute nondisplaced lateral malleolar fracture. Thank you for allowing us to participate in the care of your patient. Dictated and Authenticated by: Justo Dukes MD [facility] Final Radiology Report Call: [phone] assistance Online chat: [email or web address] Name: SHU HAMPTON Age: 50Years M Date: 03/29/2019 SSN: -- : 04/01/1968 Study: XR CHEST 1 VIEW FRONTAL Requesting Physician: AYDEN LOPEZ Images: 1 Addl Studies: Provided Clinical History: Contrast: Contrast Medium: Contrast Amount: Contrast Method: CONFIDENTIALITY STATEMENT This report is intended only for use by the referring physician, and only in accordance with law. If you received this in error, call [phone]. Page 1 of 1 EXAM: XR Chest, 1 View EXAM DATE/TIME: 03/29/2019 10:09 PM CLINICAL HISTORY: 50 years old, male; Chest pain; Type not specified TECHNIQUE: Imaging protocol: XR of the chest, 1 view. COMPARISON: CR Chest 2V 01/12/2019 8:49 AM FINDINGS: Lungs: Nonspecific bibasilar consolidation is present, consistent with atelectasis, edema, or pneumonia. The lungs are hyperinflated, consistent with underlying small airways disease. Pleural space: Unremarkable. No pleural effusion. No pneumothorax. Heart/Mediastinum: Unremarkable. No cardiomegaly. Bones/joints: Unremarkable. IMPRESSION: Nonspecific bibasilar consolidation is present, consistent with atelectasis, edema, or pneumonia. Thank you for allowing us to participate in the care of your patient. Dictated and Authenticated by: Navdeep Ireland DO 03/29/2019 10:35 PM Central Time ([place] & [place]) Departure - Departure Time of Disposition: 22:07 Disposition: Home, Self-Care 01 Condition: Good Clinical Impression: Left malleolar fracture Qualifiers: Encounter type: initial encounter Fracture type: closed Qualified Code(s): S82.892A - Other fracture of left lower leg, initial encounter for closed fracture - Discharge Information *PRESCRIPTION DRUG MONITORING PROGRAM REVIEWED*: No *COPY OF PRESCRIPTION DRUG MONITORING REPORT IN PATIENT KAMILAH: No Instructions: Nondisplaced Fibular Ankle Fracture Treated With Immobilization, Adult Referrals: Radha Vanegas MD [Primary Care Provider] - Forms: ED Department Discharge Care Plan Goals: elevate ice alternate tylenol and ibuprofen for discomfort boot crutches - non weight bearing until seen by ortho follow up with ortho this week
== END 2019-03-29 22:28 | disposition home or self-care (01) ==
LOC: DL.ED 20:32
DX: S82.65XA Nondisplaced fracture of lateral malleolus of left fibula, initial encounter for closed fracture (principal); E10.9 Type 1 diabetes mellitus without complications; Z88.1 Allergy status to other antibiotic agents; Z79.899 Other long term (current) drug therapy; Z79.51 Long term (current) use of inhaled steroids; W10.1XXA Fall (on)(from) sidewalk curb, initial encounter
CPT/HCPCS: 73610-LT; 73630-LT; 99283-25

== ENCOUNTER 2019-05-12 07:56 | Emergency (ER) | payer BC ==
--- NOTE | 2019-05-12 08:10 | EDM.PDOC ---
ED HPI GENERAL MEDICAL PROBLEM - General Chief Complaint: Respiratory Problem Stated Complaint: OVER ALL CHECK, SHORTNESS OF BREATH, HIGH HRT RT Time Seen by Provider: 05/12/19 08:10 Source of Information: Reports: Patient, Family (mother), Old Records, RN, RN Notes Reviewed History Limitations: Reports: No Limitations - History of Present Illness INITIAL COMMENTS - FREE TEXT/NARRATIVE: 23yr old female with cystic fibrosis presents to ER from home by POV with c/o onset of shortness of breath last evening (05/11/19) with associated symptoms of a fast heart rate, home monitored oxygen saturation of 85%, and a generalized "unwell" feeling. Pt reports that her oxygen sat. was 97% yesterday morning and that she felt well all day yesterday up until the evening when the shortness of breath began. Pt admits to slight cough. Denies fever, chills, sore throat, chest or abdominal pain, N/V/D/C, or urinary symptoms. 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) Associated Symptoms: Reports: No Other Symptoms Treatments [employer]: Reports: Breathing Treatments, Other Medication(s), Oxygen - Related Data Allergies Allergy/AdvReac Type Severity Reaction Status Date / Time levofloxacin [From Levaquin] Allergy Swollen Verified 05/12/19 08:11 Tongue Home Meds: Home Meds Amylase/Lipase/Protease [Aretha MOTTA 24,000 Unit] 6 cap PO TIDMEALS 07/23/15 [ History] Ivacaftor [Kalydeco] 150 mg PO DAILY 07/23/15 [History] Lansoprazole [Prevacid] 15 mg PO BID 07/23/15 [History] Insulin Aspart [NovoLOG] 10 units SQ ASDIRECTED 11/04/18 [History] Azithromycin 500 mg PO ASDIRECTED 02/01/19 [History] Aztreonam Lysine [Cayston] 75 mg NEB TID 02/01/19 [History] Cholecalciferol (Vitamin D3) [Vitamin D3] 50,000 units PO DAILY 02/01/19 [ History] Norethindrone AC-Eth Estradiol [Norethind-Eth Estrad 1-0.02 mg] 1 each PO DAILY 02/01/19 [History] Spironolactone [Aldactone] 100 mg PO DAILY 02/01/19 [History] Tobramycin In 0.225% NaCl [Tobramycin 300 mg/5 ml Ampule] 5 ml NEB BID 02/01/19 [History] Venlafaxine HCl [Venlafaxine HCl ER] 75 mg PO DAILY 02/01/19 [History] Venlafaxine HCl [Venlafaxine HCl ER] 150 mg PO DAILY 02/01/19 [History] Acetylcysteine [Mucomyst 10%] 4 ml NEB TID 03/29/19 [History] Albuterol Sulfate [Proair Hfa] 2 puff INH Q4H PRN 03/29/19 [History] Amylase/Lipase/Protease [Creon DR 24,000 Unit] 3 cap PO WITHSNACKS 03/29/19 [ History] Budesonide [Rhinocort Allergy] 8.43 ml NS BID PRN 03/29/19 [History] Cholecalciferol (Vitamin D3) [Vitamin D3] 8,000 unit PO DAILY 03/29/19 [History] Dornase Michael [Pulmozyme] 2.5 mg NEB BID 03/29/19 [History] Ergocalciferol (Vitamin D2) [Vitamin D2] 50,000 units PO DAILY 03/29/19 [History ] Insulin Aspart [NovoLOG] 1.4 units SQ ASDIRECTED 03/29/19 [History] Insulin Glargine,Hum.Rec.Anlog [Lantus Solostar] 35 unit SQ DAILY 03/29/19 [ History] Lactobacillus Rhamnosus GG [Culturelle] 1 cap PO BID 03/29/19 [History] Levalbuterol HCl [Xopenex] 1 ampule NEB Q8H 03/29/19 [History] Multivitamins [Tab-A-Cassandra] 2 each PO DAILY 03/29/19 [History] Polyethylene Glycol 3350 [MiraLAX] 17 gm PO DAILY PRN 03/29/19 [History] Sodium Chloride 7% [HyperSal 7%] 4 ml NEB BID 03/29/19 [History] Tedizolid Phosphate [Sivextro] 200 mg PO DAILY 03/29/19 [History] Past Medical History Respiratory History: Reports: Cystic Fibrosis Psychiatric History: Reports: Anxiety, Panic Attack Endocrine/Metabolic History: Reports: Diabetes, Type I - Past Surgical History GI Surgical History: Reports: Other (See Below) Other GI Surgeries/Procedures: Feeding tube and removal Social & Family History - Family History Family Medical History: Noncontributory - Tobacco Use Smoking Status *Q: Never Smoker Second Hand Smoke Exposure: No - Caffeine Use Caffeine Use: Reports: Coffee, Soda - Living Situation & Occupation Living situation: Reports: with Family Occupation: Employed ED ROS GENERAL - Review of Systems Review Of Systems: ROS reveals no pertinent complaints other than HPI. ED EXAM, GENERAL - Physical Exam Exam: See Below Exam Limited By: No Limitations General Appearance: Alert, Anxious, Mild Distress, Other (Tearful) Eye Exam: Bilateral Eye: Normal Inspection Nose: Normal Inspection, Normal Mucosa, No Blood Throat/Mouth: Normal Inspection, Normal Lips, Normal Teeth, Normal Gums, Normal Oropharynx, Normal Voice, No Airway Compromise Head: Atraumatic, Normocephalic Neck: Normal Inspection, Supple, Non-Tender, Full Range of Motion. No: Lymphadenopathy (L), Lymphadenopathy (R) Respiratory/Chest: Chest Non-Tender, Decreased Breath Sounds, Crackles, Accessory Muscle Use Cardiovascular: Normal Peripheral Pulses, Regular Rate, Rhythm, No Edema, Tachycardia GI/Abdominal: Normal Bowel Sounds, Soft, Non-Tender, No Organomegaly, No Distention, No Abnormal Bruit, No Mass Back Exam: Normal Inspection Extremities: Normal Inspection, Normal Range of Motion, Non-Tender, No Pedal Edema, Normal Capillary Refill Neurological: Alert, Oriented, CN II-XII Intact, Normal Cognition, No Motor/ Sensory Deficits Psychiatric: Anxious, Tearful Skin Exam: Warm, Dry, Intact, Normal Color, No Rash Course - Vital Signs Last Recorded V/S: Last Vital Signs Temp 97.1 F 05/12/19 08:06 Pulse 90 05/12/19 08:26 Resp 28 H 05/12/19 08:06 BP 156/97 H 05/12/19 08:06 Pulse Ox 85 L 05/12/19 08:06 - Orders/Labs/Meds Orders: Active Orders 24 hr Category Date Time Status Blood Glucose Check, Bedside [RC] ONETIME Care 05/12/19 09:19 Active Peripheral IV Care [RC] . DIRECTED Care 05/12/19 08:18 Active RT Aerosol Therapy [RC] ASDIRECTED Care 05/12/19 08:19 Active Chest 1V Frontal [CR] Stat Exams 05/12/19 08:41 Taken CULTURE BLOOD [BC] Stat Lab 05/12/19 08:38 Received CULTURE BLOOD [BC] Stat Lab 05/12/19 08:48 Received CULTURE SPUTUM + SMEAR [RM] Stat Lab 05/12/19 09:26 Ordered CULTURE STREP A CONFIRMATION [] Stat Lab 05/12/19 08:43 Results HCG QUALITATIVE,URINE [URCHEM] Stat Lab 05/12/19 08:17 Ordered STREP SCRN A RAPID W CULT CONF [RM] Stat Lab 05/12/19 08:43 Results UA RFX LUCI AND CULT IF INDIC [URIN] Stat Lab 05/12/19 08:18 Ordered Sodium Chloride 0.9% [Saline Flush] Med 05/12/19 08:17 Active 10 ml FLUSH ASDIRECTED PRN Blood Culture x2 Reflex Set [OM.PC] Stat Oth 05/12/19 08:17 Ordered IO Insertion [Intraosseous Insertion] [OM.PC] Routine Oth 05/12/19 09:19 Ordered Peripheral IV Insertion Adult [OM.PC] Stat Oth 05/12/19 08:17 Ordered Medication Orders Sodium Chloride (Saline Flush) 10 ml FLUSH ASDIRECTED PRN PRN Reason: Keep Vein Open Labs: Laboratory Tests 05/12/19 05/12/19 05/12/19 Range/Units 08:38 08:38 08:38 WBC 20.1 H (5.0-10.0) 10^3/uL RBC 4.29 (4.2-5.4) 10^6/uL Hgb 11.8 L (12.0-16.0) g/dL Hct 35.6 L (37.0-47.0) % MCV 83.0 D (80-100) fL MCH 27.5 (27.0-34.0) pg MCHC 33.1 (33.0-35.0) g/dL Plt Count 632 H (150-450) 10^3/uL Neut % (Auto) 81.2 H (42.2-75.2) % Lymph % (Auto) 15.4 L (20.5-50.1) % Treasure % (Auto) 2.5 (2-8) % Eos % (Auto) 0.7 L (1.0-3.0) % Baso % (Auto) 0.2 (0.0-1.0) % ABG pH (7.35-7.45) ABG pCO2 (35-45) mmHg ABG pO2 (70-100) mmHg ABG HCO3 (22-26) mmol/L ABG O2 Saturation (95-100) % ABG Base Excess ((-2)-(+3)) mmol/L Justo Test O2 Delivery Device Oxygen Flow Rate Sodium 137 (135-145) mmol/L Potassium 3.8 (3.6-5.0) mmol/L Chloride 103 (101-111) mmol/L Carbon Dioxide 24.0 (21.0-31.0) mmol/L Anion Gap 13.8 BUN 17 (7-18) mg/dL Creatinine 0.9 (0.6-1.3) mg/dL Est Cr Clr Drug Dosing 85.38 mL/min Estimated GFR (MDRD) > 60 BUN/Creatinine Ratio 18.88 Glucose 162 H (74-105) mg/dL POC Glucose (70-105) mg/dl Lactic Acid 2.6 H (0.5-2.2) mmol/L Calcium 8.7 (8.4-10.2) mg/dl Total Bilirubin 0.4 (0.2-1.0) mg/dL AST 37 (10-42) IU/L ALT 31 (10-60) IU/L Alkaline Phosphatase 111 (42-121) IU/L Total Protein 7.9 (6.7-8.2) g/dl Albumin 3.1 L (3.2-5.5) g/dl Globulin 4.8 Albumin/Globulin Ratio 0.65 Ketones 05/12/19 05/12/19 05/12/19 Range/Units 08:38 09:10 09:24 WBC (5.0-10.0) 10^3/uL RBC (4.2-5.4) 10^6/uL Hgb (12.0-16.0) g/dL Hct (37.0-47.0) % MCV (80-100) fL MCH (27.0-34.0) pg MCHC (33.0-35.0) g/dL Plt Count (150-450) 10^3/uL Neut % (Auto) (42.2-75.2) % Lymph % (Auto) (20.5-50.1) % Treasure % (Auto) (2-8) % Eos % (Auto) (1.0-3.0) % Baso % (Auto) (0.0-1.0) % ABG pH 7.38 (7.35-7.45) ABG pCO2 39 (35-45) mmHg ABG pO2 52 L (70-100) mmHg ABG HCO3 22.2 (22-26) mmol/L ABG O2 Saturation 83 L (95-100) % ABG Base Excess -2 ((-2)-(+3)) mmol/L Justo Test pos O2 Delivery Device Nasal cannula Oxygen Flow Rate 3 Sodium (135-145) mmol/L Potassium (3.6-5.0) mmol/L Chloride (101-111) mmol/L Carbon Dioxide (21.0-31.0) mmol/L Anion Gap BUN (7-18) mg/dL Creatinine (0.6-1.3) mg/dL Est Cr Clr Drug Dosing mL/min Estimated GFR (MDRD) BUN/Creatinine Ratio Glucose (74-105) mg/dL POC Glucose 86 (70-105) mg/dl Lactic Acid (0.5-2.2) mmol/L Calcium (8.4-10.2) mg/dl Total Bilirubin (0.2-1.0) mg/dL AST (10-42) IU/L ALT (10-60) IU/L Alkaline Phosphatase (42-121) IU/L Total Protein (6.7-8.2) g/dl Albumin (3.2-5.5) g/dl Globulin Albumin/Globulin Ratio Ketones Negative Influenza A/B: negative Rapid Strep: negative Meds: Medications Generic Name Dose Route Start Last Admin Trade Name Freq PRN Reason Stop Dose Admin Sodium Chloride 10 ml 05/12/19 08:17 Saline Flush FLUSH ASDIRECTED PRN Keep Vein Open Discontinued Medications Generic Name Dose Route Start Last Admin Trade Name Freq PRN Reason Stop Dose Admin Albuterol/Ipratropium 3 ml 05/12/19 08:19 05/12/19 08:29 Duoneb 3.0-0.5 Mg/3 Ml NEB 05/12/19 08:20 3 ml ONETIME ONE Administration Dextrose 15 gm 05/12/19 09:15 05/12/19 09:27 Glutose 15 PO 05/12/19 09:16 15 gm ONETIME ONE Administration Dextrose Confirm 05/12/19 09:13 05/12/19 09:27 Glutose 15 Administered 05/12/19 09:14 Not Given Dose 15 gm .ROUTE .STK-MED ONE Dextrose/Water 50 ml 05/12/19 09:15 05/12/19 09:33 Dextrose 50% In Water IVPUSH 05/12/19 09:16 50 ml ONETIME ONE Administration Sodium Chloride 1,000 mls @ 999 mls/hr 05/12/19 08:25 05/12/19 09:27 Normal Saline IV 05/12/19 09:25 999 mls/hr .BOLUS ONE Administration Piperacillin Sod/Tazobactam 100 mls @ 200 mls/hr 05/12/19 08:26 05/12/19 09: 30 Sod 3.375 gm/ Sodium Chloride IV 05/12/19 08:55 200 mls/hr ONETIME ONE Administration Lorazepam 0.5 mg 05/12/19 08:31 Ativan IVPUSH 05/12/19 08:32 ONETIME ONE Lorazepam 1 mg 05/12/19 08:45 05/12/19 08:48 Ativan IM 05/12/19 08:46 1 mg ONETIME ONE Administration - Radiology Interpretation Free Text/Narrative:: [facility] Final Radiology Report Call: [phone] assistance Online chat: [email or web address] Name: APRIL GLASS Age: 23Years F Date: 05/12/2019 SSN: -- : 1995 Study: XR CHEST 1 VIEW FRONTAL Requesting Physician: MELA OTOOLE Images: 1 Addl Studies: Provided Clinical History: Contrast: Contrast Medium: Contrast Amount: Contrast Method: CONFIDENTIALITY STATEMENT This report is intended only for use by the referring physician, and only in accordance with law. If you received this in error, call [phone]. Page 1 of 1 PROCEDURE INFORMATION: Exam: XR Chest, 1 View Exam date and time: 05/12/2019 8:41 AM Clinical history: 23 years old, female; Shortness of breath; cystic fibrosis TECHNIQUE: Imaging protocol: XR of the chest Views: 1 view. COMPARISON: CR Chest 2V 02/09/2019 9:01 AM FINDINGS: Lungs: Worsened air space consolidation is present in the right perihilar lung with partial silhouetting of the right heart border and right hemidiaphragm. Similarly, there is increased opacity at the left heart border. Chronic interstitial prominence and reticulonodular densities. There is peribronchial cuffing and bronchiectasis similar to prior exam. Pleural space: Unremarkable. No pleural effusion. No pneumothorax. Heart/Mediastinum: Unremarkable. No cardiomegaly. Bones/joints: Unremarkable. IMPRESSION: Lingular, right middle and lower lobe pneumonia superimposed on a background of chronic changes of cystic fibrosis. Thank you for allowing us to participate in the care of your patient. Dictated and Authenticated by: Aliyah Macias MD 05/12/2019 9:15 AM Central Time ([place] & Sat[place]) - Re-Assessments/Exams Free Text/Narrative Re-Assessment/Exam: 05/12/19 09:00 CF pt and DM Type 1 with pneumonia and acute resp. failure. Pt stabilized sufficiently for emergent transfer to a higher level of care. Dr. Buchanan from [facility] has accepted the pt. Departure - Departure Time of Disposition: 09:38 Disposition: DC/Tfer to Acute Hospital 02 Condition: Serious, Critical Clinical Impression: History of cystic fibrosis Diabetes mellitus type 1 Qualifiers: Diabetes mellitus complication status: without complication Qualified Code(s): E10.9 - Type 1 diabetes mellitus without complications Pneumonia Qualifiers: Pneumonia type: due to unspecified organism Laterality: bilateral Lung location : unspecified part of lung Qualified Code(s): J18.9 - Pneumonia, unspecified organism Acute respiratory failure Qualifiers: Respiratory failure complication: hypoxia Qualified Code(s): J96.01 - Acute respiratory failure with hypoxia - Discharge Information *PRESCRIPTION DRUG MONITORING PROGRAM REVIEWED*: Not Applicable *COPY OF PRESCRIPTION DRUG MONITORING REPORT IN PATIENT KAMILAH: Not Applicable Forms: ED Department Discharge, Interfacility Transfer EMTALA - My Orders Last 24 Hours: My Active Orders 05/12/19 08:17 HCG QUALITATIVE,URINE [URCHEM] Stat Sodium Chloride 0.9% [Saline Flush] 10 ml FLUSH ASDIRECTED PRN Blood Culture x2 Reflex Set [OM.PC] Stat Peripheral IV Insertion Adult [OM.PC] Stat 05/12/19 08:18 Peripheral IV Care [RC] . DIRECTED UA RFX LUCI AND CULT IF INDIC [URIN] Stat 05/12/19 08:19 RT Aerosol Therapy [RC] ASDIRECTED 05/12/19 08:38 CULTURE BLOOD [BC] Stat 05/12/19 08:41 Chest 1V Frontal [CR] Stat 05/12/19 08:43 CULTURE STREP A CONFIRMATION [RM] Stat STREP SCRN A RAPID W CULT CONF [RM] Stat 05/12/19 08:48 CULTURE BLOOD [BC] Stat 05/12/19 09:19 Blood Glucose Check, Bedside [RC] ONETIME IO Insertion [Intraosseous Insertion] [OM.PC] Routine 05/12/19 09:26 CULTURE SPUTUM + SMEAR [RM] Stat - Assessment/Plan Last 24 Hours: My Active Orders 05/12/19 08:17 HCG QUALITATIVE,URINE [URCHEM] Stat Sodium Chloride 0.9% [Saline Flush] 10 ml FLUSH ASDIRECTED PRN Blood Culture x2 Reflex Set [OM.PC] Stat Peripheral IV Insertion Adult [OM.PC] Stat 05/12/19 08:18 Peripheral IV Care [RC] . DIRECTED UA RFX LUCI AND CULT IF INDIC [URIN] Stat 05/12/19 08:19 RT Aerosol Therapy [RC] ASDIRECTED 05/12/19 08:38 CULTURE BLOOD [BC] Stat 05/12/19 08:41 Chest 1V Frontal [CR] Stat 05/12/19 08:43 CULTURE STREP A CONFIRMATION [RM] Stat STREP SCRN A RAPID W CULT CONF [RM] Stat 05/12/19 08:48 CULTURE BLOOD [BC] Stat 05/12/19 09:19 Blood Glucose Check, Bedside [RC] ONETIME IO Insertion [Intraosseous Insertion] [OM.PC] Routine 05/12/19 09:26 CULTURE SPUTUM + SMEAR [RM] Stat
[2019-05-12] MEDS ORDERED: Sodium Chloride 0.9% 10 ML Syringe FLUSH PRN (08:17)
[2019-05-12] MEDS ORDERED: Albuterol/Ipratropium 3.0-0.5 MG/3 ML Neb Soln NEB ONE (08:19)
[2019-05-12] MEDS ORDERED: Sodium Chloride 0.9% 1,000 ML IV ONE (08:25)
[2019-05-12] MEDS ORDERED: Piperacillin/Tazobactam 3.375 GM in Sodium Chloride 0.9% 100 ML IV ONE (08:26)
[2019-05-12] MEDS ORDERED: LORazepam 2 MG/ML Syringe IVPUSH ONE (08:31)
[2019-05-12] MEDS ORDERED: LORazepam 2 MG/ML Syringe IM ONE (08:45)
[2019-05-12 09:11] LABS: ANION GAP 13.8; CHLORIDE,CL 103 mmol/L (101-111); SODIUM,NA 137 mmol/L (135-145)
[2019-05-12] MEDS ORDERED: Glucose Gel 15 GM in 37.5 GM Tube ONE (09:13)
[2019-05-12] MEDS ORDERED: 50% Dextrose in Water 50 ML Syringe IVPUSH ONE (09:15)
[2019-05-12] MEDS ORDERED: Glucose Gel 15 GM in 37.5 GM Tube PO ONE (09:15)
[2019-05-12 09:19] LABS: BASE EXCESS ARTERIAL -2 mmol/L ((-2)-(+3)); BICARBONATE,ARTERIAL 22.2 mmol/L (22-26); O2 DELIVERY DEVICE NASAL CANNULA; O2 SATURATION ARTERIAL 83 % (95-100); PCO2 ARTERIAL 39 mmHg (35-45); PO2 ARTERIAL 52 mmHg (70-100)
[2019-05-12 09:22] LABS: ALLEN TEST pos; O2 FLOW RATE 3
[2019-05-12 10:13] VITALS: BP 150/99; PULSE 135
== END 2019-05-12 10:15 ==
LOC: DL.ED 07:56
DX: J96.01 Acute respiratory failure with hypoxia (principal); J18.9 Pneumonia, unspecified organism; E10.9 Type 1 diabetes mellitus without complications; F41.9 Anxiety disorder, unspecified; Z87.09 Personal history of other diseases of the respiratory system; Z88.1 Allergy status to other antibiotic agents; Z79.899 Other long term (current) drug therapy; Z79.4 Long term (current) use of insulin
CPT/HCPCS: 36415; 36600; 71045; 80053; 81001; 81025; 82009; 82803; 82962; 83605; 85025; 87040; 87070; 87077; 87081; 87086; 87186; 87205; 87430; 87804; 94640; 96365; 96372; 96375; 99285; A9270; J2060; J2543; J7030; J7050; J7060; J7620-GY